=== PATIENT | female | born 1960 | race African-American/Black ===

== ENCOUNTER 2022-01-08 11:36 | Inpatient (IN) | payer BC, OTHER ==
[2022-01-08] MEDS ORDERED: ACETAMINOPHEN 1000 MG/100 ML BAG IVPB ONE (12:59)
[2022-01-08] MEDS ORDERED: ACETAMINOPHEN INJECTION 100 ML IVPB ONE (13:00)
[2022-01-08 13:21] LABS: BASO % 0.2 % (0-2.0); EOS % 0.1 % (0-4.5); HEMATOCRIT 43.6 % (32.4-45.2); LYMPH % 26.8 % (8-40); MCH 31.1 pg (25.7-33.7); MCHC 32.1 g/dl (32.0-36.0); MEAN CELL VOLUME 96.8 fl (80-96); NEUT % 63.9 % (42.8-82.8); PLATELET COUNT 177 10^3/uL (134-434); RBC 4.51 M/mm3 (3.60-5.2); WHITE BLOOD COUNT 4.2 K/mm3 (4.0-10.0)
[2022-01-08 13:41] LABS: CHLORIDE 110 mmol/L (98-107); SODIUM 143 mmol/L (136-145)
[2022-01-08 13:44] LABS: CALCIUM 9.8 mg/dL (8.5-10.1)
[2022-01-08 13:45] LABS: ALBUMIN 3.7 g/dl (3.4-5.0); ANION GAP 9 MMOL/L (8-16); CO2 24 mmol/L (21-32); GLUCOSE,RANDOM 119 mg/dL (74-106)
[2022-01-08 13:48] LABS: CREATININE 1.4 mg/dL (0.55-1.3); SGOT/AST 98 U/L (15-37); SGPT/ALT 115 U/L (13-61)
[2022-01-08 13:49] LABS: ALK PHOS 56 U/L (45-117); BILIRUBIN,TOTAL 0.9 mg/dL (0.2-1)
[2022-01-08 14:06] LABS: N-TERMINAL BNP 40397.8 pg/ml (5-125)
[2022-01-08] MEDS ORDERED: FUROSEMIDE 40 MG/4 ML INJECTABLE VIAL IVPUSH ONE ×2 (14:22→17:15)
[2022-01-08] MEDS ORDERED: ASPIRIN 81 MG CHEWABLE TABLETS PO ONE (14:22)
[2022-01-08] MEDS ORDERED: FUROSEMIDE 40 MG/4 ML INJECTABLE VIAL ONE ×2 (14:25→17:41)
[2022-01-08] MEDS ORDERED: ASPIRIN 81 MG CHEWABLE TABLETS ONE (14:25)
[2022-01-08] MEDS ORDERED: HEPARIN NA (PORCINE) 5,000 UNITS/ML 1ML VIAL IVPUSH ONE (17:19)
[2022-01-08] MEDS ORDERED: HEPARIN NA (PORCINE) 5,000 UNITS/ML 1ML VIAL IVPUSH PRN (18:49)
[2022-01-08 19:59] LABS: INR 1.22 (0.83-1.09); PROTHROMBIN TIME (PATIENT) 14.1 SEC (9.7-13.0)
[2022-01-08 20:02] LABS: ACTIVATED PTT 23.9 SECONDS (25.2-36.5)
[2022-01-08] MEDS ORDERED: HEPARIN NA (PORCINE) 5,000 UNITS/ML 1ML VIAL ONE (20:19)
[2022-01-08] MEDS ORDERED: HEPARIN INFUSION - 25,000 UNITS/500 ML INFUS.BAG IVPB ONE (20:20)
[2022-01-08] MEDS: HEPARIN INFUSION - 25,000 UNITS/500 ML INFUS.BAG IVPB SCH (20:34)
[2022-01-08] MEDS ORDERED: POLYETHYLENE GLYCOL (HEALTHYLAX) 3350 17 GM PACKET PO PRN (23:31)
[2022-01-08] MEDS ORDERED: ACETAMINOPHEN 1000 MG/100 ML BAG IVPB PRN (23:37)
[2022-01-09 06:25] LABS: BASO % 0.2 % (0-2.0); EOS % 0.1 % (0-4.5); HEMATOCRIT 45.1 % (32.4-45.2); HEMOGLOBIN 14.4 GM/dL (10.7-15.3); LYMPH % 28.6 % (8-40); MCH 31.3 pg (25.7-33.7); MEAN PLT VOLUME 11.7 fl (7.5-11.1); MONO % 10.9 % (3.8-10.2); NEUT % 60.2 % (42.8-82.8); PLATELET COUNT 179 10^3/uL (134-434); RDW 15.6 % (11.6-15.6); WHITE BLOOD COUNT 7.2 K/mm3 (4.0-10.0)
[2022-01-09 06:58] LABS: CHLORIDE 108 mmol/L (98-107); SODIUM 145 mmol/L (136-145)
[2022-01-09 06:59] LABS: CALCIUM 8.8 mg/dL (8.5-10.1)
[2022-01-09 07:00] LABS: ANION GAP 15 MMOL/L (8-16); BLOOD UREA NITROGEN 27.2 mg/dL (7-18); CO2 22 mmol/L (21-32); GLUCOSE,RANDOM 149 mg/dL (74-106); MAGNESIUM 2.4 mg/dL (1.8-2.4)
[2022-01-09 07:03] LABS: CREATININE 1.6 mg/dL (0.55-1.3); PHOSPHOROUS 4.7 mg/dL (2.5-4.9)
[2022-01-09] MEDS: PANTOPRAZOLE 40 MG TABLET PO SCH (10:00)
[2022-01-09] MEDS ORDERED: FUROSEMIDE 100 MG/10 ML INJECTABLE VIAL IVPB SCH (11:42)
[2022-01-09] MEDS ORDERED: CLOPIDOGREL BISULFATE 300 MG TABLET PO ONE (13:23)
[2022-01-09] MEDS: FUROSEMIDE 40 MG/4 ML INJECTABLE VIAL IVPB SCH (13:49)
[2022-01-09] MEDS: ASPIRIN 81 MG CHEWABLE TABLETS PO SCH (13:50)
[2022-01-09] MEDS: HEPARIN NA (PORCINE) 5,000 UNITS/ML 1ML VIAL IVPUSH PRN (21:13)
[2022-01-09] MEDS ORDERED: ACETAMINOPHEN 325 MG TABLET (FP) PO PRN (23:31)
[2022-01-10 06:03] LABS: BASO % 0.4 % (0-2.0); EOS % 0.5 % (0-4.5); HEMATOCRIT 42.2 % (32.4-45.2); HEMOGLOBIN 13.8 GM/dL (10.7-15.3); LYMPH % 31.1 % (8-40); MCH 31.1 pg (25.7-33.7); MCHC 32.8 g/dl (32.0-36.0); MEAN CELL VOLUME 94.8 fl (80-96); MEAN PLT VOLUME 10.4 fl (7.5-11.1); MONO % 8.7 % (3.8-10.2); NEUT % 59.3 % (42.8-82.8); PLATELET COUNT 151 10^3/uL (134-434); RBC 4.45 M/mm3 (3.60-5.2); RDW 15.2 % (11.6-15.6); WHITE BLOOD COUNT 4.7 K/mm3 (4.0-10.0)
[2022-01-10] MEDS: FUROSEMIDE 40 MG/4 ML INJECTABLE VIAL IVPB SCH ×2 (06:14→13:34)
[2022-01-10 06:22] LABS: CALCIUM 8.9 mg/dL (8.5-10.1)
[2022-01-10 06:23] LABS: BLOOD UREA NITROGEN 30.4 mg/dL (7-18)
[2022-01-10 06:26] LABS: CREATININE 1.2 mg/dL (0.55-1.3)
[2022-01-10 06:27] LABS: BILIRUBIN,TOTAL 0.8 mg/dL (0.2-1); TOT PROT 5.8 g/dl (6.4-8.2)
[2022-01-10] MEDS: HEPARIN NA (PORCINE) 5,000 UNITS/ML 1ML VIAL IVPUSH PRN (06:49)
[2022-01-10] MEDS: HEPARIN INFUSION - 25,000 UNITS/500 ML INFUS.BAG IVPB SCH (07:48)
[2022-01-10] MEDS: ASPIRIN 81 MG CHEWABLE TABLETS PO SCH (09:49)
[2022-01-10] MEDS: PANTOPRAZOLE 40 MG TABLET PO SCH (09:49)
[2022-01-10] MEDS: CLOPIDOGREL BISULFATE 75 MG TABLET (FP) PO SCH (09:49)
[2022-01-10 10:58] LABS: EPI CELLS 0 /uL (0-25.1); HYALINE CASTS 0 /uL (0-3.1); URINE APPEARANCE CLEAR; URINE BILIRUBIN NEGATIVE (NEGATIVE); URINE COLOR YELLOW; URINE GLUCOSE (UA) TRACE (NEGATIVE); URINE KETONE NEGATIVE (NEGATIVE); URINE LEUK ESTERASE NEGATIVE (NEGATIVE); URINE NITRITE POSITIVE (NEGATIVE); URINE PROTEIN NEGATIVE (NEGATIVE); URINE RBC 5 /uL (0-23.9); URINE UROBILINOGEN 0.2 mg/dL (0.2-1.0); URINE WBC 0 /uL (0-25.8)
[2022-01-10 12:08] LABS: URINE BACTERIA 0.9 /uL (0-1359)
[2022-01-10] MEDS: ATORVASTATIN CA 80 MG TABLET (FP) PO SCH (21:25)
[2022-01-11] MEDS: FUROSEMIDE 40 MG/4 ML INJECTABLE VIAL IVPB SCH ×2 (06:19→14:15)
[2022-01-11 08:22] LABS: MCH 31.2 pg (25.7-33.7); MCHC 32.5 g/dl (32.0-36.0); MEAN PLT VOLUME 11.3 fl (7.5-11.1); PLATELET COUNT 170 10^3/uL (134-434); RBC 4.48 M/mm3 (3.60-5.2); RDW 14.9 % (11.6-15.6); WHITE BLOOD COUNT 4.5 K/mm3 (4.0-10.0)
[2022-01-11 08:36] LABS: ALBUMIN 3.1 g/dl (3.4-5.0); CALCIUM 8.9 mg/dL (8.5-10.1)
[2022-01-11 08:37] LABS: BLOOD UREA NITROGEN 30.7 mg/dL (7-18)
[2022-01-11 08:40] LABS: CREATININE 1.1 mg/dL (0.55-1.3)
[2022-01-11 08:41] LABS: BILIRUBIN,TOTAL 0.8 mg/dL (0.2-1); TOT PROT 6.2 g/dl (6.4-8.2)
[2022-01-11] MEDS: PANTOPRAZOLE 40 MG TABLET PO SCH (09:22)
[2022-01-11] MEDS: CLOPIDOGREL BISULFATE 75 MG TABLET (FP) PO SCH (09:22)
[2022-01-11] MEDS: ASPIRIN 81 MG CHEWABLE TABLETS PO SCH (09:22)
[2022-01-11] MEDS: ATORVASTATIN CA 80 MG TABLET (FP) PO SCH (21:58)
[2022-01-12] MEDS: FUROSEMIDE 40 MG/4 ML INJECTABLE VIAL IVPB SCH ×2 (06:13→13:28)
[2022-01-12 07:20] LABS: HEMATOCRIT 39.7 % (32.4-45.2); HEMOGLOBIN 13.3 GM/dL (10.7-15.3); MCHC 33.6 g/dl (32.0-36.0); MEAN CELL VOLUME 95.2 fl (80-96); MEAN PLT VOLUME 10.8 fl (7.5-11.1); PLATELET COUNT 176 10^3/uL (134-434); RBC 4.17 M/mm3 (3.60-5.2); RDW 14.6 % (11.6-15.6); WHITE BLOOD COUNT 3.4 K/mm3 (4.0-10.0)
[2022-01-12 07:42] LABS: ALBUMIN 2.8 g/dl (3.4-5.0); CALCIUM 8.7 mg/dL (8.5-10.1)
[2022-01-12 07:43] LABS: BLOOD UREA NITROGEN 29.1 mg/dL (7-18)
[2022-01-12 07:47] LABS: BILIRUBIN,TOTAL 0.6 mg/dL (0.2-1); TOT PROT 5.6 g/dl (6.4-8.2)
[2022-01-12] MEDS: ASPIRIN 81 MG CHEWABLE TABLETS PO SCH (09:10)
[2022-01-12] MEDS: CLOPIDOGREL BISULFATE 75 MG TABLET (FP) PO SCH (09:10)
[2022-01-12] MEDS: PANTOPRAZOLE 40 MG TABLET PO SCH (09:10)
[2022-01-12] MEDS: ATORVASTATIN CA 80 MG TABLET (FP) PO SCH (21:47)
[2022-01-13] MEDS: FUROSEMIDE 40 MG/4 ML INJECTABLE VIAL IVPB SCH ×2 (06:16→13:46)
[2022-01-13 07:30] LABS: HEMATOCRIT 40.4 % (32.4-45.2); HEMOGLOBIN 13.1 GM/dL (10.7-15.3); MCH 31.3 pg (25.7-33.7); MCHC 32.4 g/dl (32.0-36.0); MEAN CELL VOLUME 96.7 fl (80-96); MEAN PLT VOLUME 10.8 fl (7.5-11.1); PLATELET COUNT 173 10^3/uL (134-434); RBC 4.18 M/mm3 (3.60-5.2); WHITE BLOOD COUNT 3.7 K/mm3 (4.0-10.0)
[2022-01-13 08:07] LABS: CALCIUM 8.9 mg/dL (8.5-10.1)
[2022-01-13 08:08] LABS: ALBUMIN 2.7 g/dl (3.4-5.0); BLOOD UREA NITROGEN 29.8 mg/dL (7-18)
[2022-01-13 08:11] LABS: CREATININE 1.1 mg/dL (0.55-1.3)
[2022-01-13 08:12] LABS: BILIRUBIN,TOTAL 0.5 mg/dL (0.2-1); TOT PROT 5.6 g/dl (6.4-8.2)
[2022-01-13] MEDS: PANTOPRAZOLE 40 MG TABLET PO SCH (09:33)
[2022-01-13] MEDS: ENALAPRIL MALEATE 2.5 MG TABLET PO SCH (09:33)
[2022-01-13] MEDS: CLOPIDOGREL BISULFATE 75 MG TABLET (FP) PO SCH (09:33)
[2022-01-13] MEDS: ASPIRIN 81 MG CHEWABLE TABLETS PO SCH (09:33)
[2022-01-13] MEDS: ATORVASTATIN CA 80 MG TABLET (FP) PO SCH (21:33)
[2022-01-14] MEDS: FUROSEMIDE 40 MG/4 ML INJECTABLE VIAL IVPB SCH ×3 (06:36→13:53)
[2022-01-14] MEDS: CLOPIDOGREL BISULFATE 75 MG TABLET (FP) PO SCH (09:29)
[2022-01-14] MEDS: PANTOPRAZOLE 40 MG TABLET PO SCH (09:29)
[2022-01-14] MEDS: ENALAPRIL MALEATE 2.5 MG TABLET PO SCH ×2 (09:30→09:33)
[2022-01-14] MEDS: ASPIRIN 81 MG CHEWABLE TABLETS PO SCH (09:30)
[2022-01-14 13:13] VITALS: BMI 18.3
[2022-01-14] MEDS: ATORVASTATIN CA 80 MG TABLET (FP) PO SCH (21:41)
[2022-01-15] MEDS: FUROSEMIDE 40 MG/4 ML INJECTABLE VIAL IVPB SCH ×3 (06:10→13:42)
[2022-01-15] MEDS: ASPIRIN 81 MG CHEWABLE TABLETS PO SCH (09:56)
[2022-01-15] MEDS: PANTOPRAZOLE 40 MG TABLET PO SCH (09:56)
[2022-01-15] MEDS: CLOPIDOGREL BISULFATE 75 MG TABLET (FP) PO SCH (09:56)
[2022-01-15] MEDS: ENALAPRIL MALEATE 2.5 MG TABLET PO SCH (09:57)
[2022-01-15] MEDS: ATORVASTATIN CA 80 MG TABLET (FP) PO SCH (22:01)
[2022-01-16] MEDS: FUROSEMIDE 40 MG/4 ML INJECTABLE VIAL IVPB SCH ×2 (05:56→13:45)
[2022-01-16] MEDS: CLOPIDOGREL BISULFATE 75 MG TABLET (FP) PO SCH (09:09)
[2022-01-16] MEDS: ASPIRIN 81 MG CHEWABLE TABLETS PO SCH (09:09)
[2022-01-16] MEDS: PANTOPRAZOLE 40 MG TABLET PO SCH (09:09)
[2022-01-16 09:18] LABS: BASO % 0.8 % (0-2.0); EOS % 0.8 % (0-4.5); HEMATOCRIT 39.2 % (32.4-45.2); LYMPH % 26.8 % (8-40); MCH 31.7 pg (25.7-33.7); MCHC 33.2 g/dl (32.0-36.0); MEAN CELL VOLUME 95.3 fl (80-96); MEAN PLT VOLUME 9.8 fl (7.5-11.1); MONO % 11.5 % (3.8-10.2); NEUT % 60.1 % (42.8-82.8); PLATELET COUNT 208 10^3/uL (134-434); RBC 4.11 M/mm3 (3.60-5.2); RDW 15.1 % (11.6-15.6); WHITE BLOOD COUNT 3.8 K/mm3 (4.0-10.0)
[2022-01-16 10:38] LABS: CALCIUM 9.1 mg/dL (8.5-10.1)
[2022-01-16 10:39] LABS: ALBUMIN 3.1 g/dl (3.4-5.0); BLOOD UREA NITROGEN 40.8 mg/dL (7-18)
[2022-01-16 10:42] LABS: CREATININE 1.2 mg/dL (0.55-1.3)
[2022-01-16 10:43] LABS: BILIRUBIN,TOTAL 0.5 mg/dL (0.2-1)
[2022-01-16] MEDS: ATORVASTATIN CA 80 MG TABLET (FP) PO SCH (21:35)
[2022-01-17] MEDS: FUROSEMIDE 40 MG/4 ML INJECTABLE VIAL IVPB SCH ×2 (06:13→13:07)
[2022-01-17] MEDS: CLOPIDOGREL BISULFATE 75 MG TABLET (FP) PO SCH (09:49)
[2022-01-17] MEDS: ASPIRIN 81 MG CHEWABLE TABLETS PO SCH (09:49)
[2022-01-17] MEDS: PANTOPRAZOLE 40 MG TABLET PO SCH (09:49)
[2022-01-17] MEDS: ATORVASTATIN CA 80 MG TABLET (FP) PO SCH (21:19)
[2022-01-18] MEDS: FUROSEMIDE 40 MG/4 ML INJECTABLE VIAL IVPB SCH ×3 (06:29→14:36)
[2022-01-18] MEDS: ASPIRIN 81 MG CHEWABLE TABLETS PO SCH (09:53)
[2022-01-18] MEDS: PANTOPRAZOLE 40 MG TABLET PO SCH (09:53)
[2022-01-18] MEDS: CLOPIDOGREL BISULFATE 75 MG TABLET (FP) PO SCH (09:53)
[2022-01-18] MEDS: ATORVASTATIN CA 80 MG TABLET (FP) PO SCH (21:07)
[2022-01-19] MEDS: FUROSEMIDE 40 MG/4 ML INJECTABLE VIAL IVPB SCH (06:09)
[2022-01-19] MEDS: ASPIRIN 81 MG CHEWABLE TABLETS PO SCH (09:28)
[2022-01-19] MEDS: CLOPIDOGREL BISULFATE 75 MG TABLET (FP) PO SCH (09:28)
[2022-01-19] MEDS: PANTOPRAZOLE 40 MG TABLET PO SCH (09:28)
[2022-01-19] MEDS: ATORVASTATIN CA 80 MG TABLET (FP) PO SCH (22:20)
[2022-01-20] MEDS: PANTOPRAZOLE 40 MG TABLET PO SCH ×2 (09:38→09:57)
[2022-01-20] MEDS: CLOPIDOGREL BISULFATE 75 MG TABLET (FP) PO SCH ×2 (09:38→09:56)
[2022-01-20] MEDS: ASPIRIN 81 MG CHEWABLE TABLETS PO SCH ×2 (09:38→09:56)
[2022-01-20] MEDS: FUROSEMIDE 40 MG TABLET (FP) PO SCH ×2 (09:52→09:56)
[2022-01-20] MEDS ORDERED: ACETAMINOPHEN 325 MG TABLET (FP) PO PRN (19:41)
[2022-01-20] MEDS ORDERED: POLYETHYLENE GLYCOL (HEALTHYLAX) 3350 17 GM PACKET PO PRN (19:41)
[2022-01-20] MEDS: ATORVASTATIN CA 80 MG TABLET (FP) PO SCH (21:55)
[2022-01-21] MEDS: ASPIRIN 81 MG CHEWABLE TABLETS PO SCH (16:31)
[2022-01-21] MEDS: PANTOPRAZOLE 40 MG TABLET PO SCH (16:32)
[2022-01-21] MEDS: CLOPIDOGREL BISULFATE 75 MG TABLET (FP) PO SCH (16:32)
[2022-01-21] MEDS: FUROSEMIDE 40 MG TABLET (FP) PO SCH (16:32)
[2022-01-21] MEDS: ATORVASTATIN CA 80 MG TABLET (FP) PO SCH (21:17)
[2022-01-22] MEDS: ASPIRIN 81 MG CHEWABLE TABLETS PO SCH (10:16)
[2022-01-22] MEDS: FUROSEMIDE 40 MG TABLET (FP) PO SCH (10:17)
[2022-01-22] MEDS: PANTOPRAZOLE 40 MG TABLET PO SCH (10:17)
[2022-01-22] MEDS: CLOPIDOGREL BISULFATE 75 MG TABLET (FP) PO SCH (10:17)
[2022-01-22] MEDS: ATORVASTATIN CA 80 MG TABLET (FP) PO SCH (21:41)
[2022-01-23] MEDS: PANTOPRAZOLE 40 MG TABLET PO SCH (10:16)
[2022-01-23] MEDS: FUROSEMIDE 40 MG TABLET (FP) PO SCH ×2 (10:16→11:48)
[2022-01-23] MEDS: CLOPIDOGREL BISULFATE 75 MG TABLET (FP) PO SCH (10:16)
[2022-01-23] MEDS: ASPIRIN 81 MG CHEWABLE TABLETS PO SCH (10:16)
[2022-01-23 17:32] LABS: CALCIUM 9.6 mg/dL (8.5-10.1)
[2022-01-23 17:33] LABS: BLOOD UREA NITROGEN 32.7 mg/dL (7-18)
[2022-01-23 17:36] LABS: CREATININE 1.3 mg/dL (0.55-1.3)
[2022-01-23 19:34] VITALS: RESP 18
[2022-01-23] MEDS: ATORVASTATIN CA 80 MG TABLET (FP) PO SCH (21:43)
[2022-01-24] MEDS: CLOPIDOGREL BISULFATE 75 MG TABLET (FP) PO SCH (09:25)
[2022-01-24] MEDS: FUROSEMIDE 40 MG TABLET (FP) PO SCH (09:25)
[2022-01-24] MEDS: ASPIRIN 81 MG CHEWABLE TABLETS PO SCH (09:25)
[2022-01-24] MEDS: PANTOPRAZOLE 40 MG TABLET PO SCH (09:25)
[2022-01-24] MEDS: ATORVASTATIN CA 80 MG TABLET (FP) PO SCH (21:35)
[2022-01-25] MEDS: ASPIRIN 81 MG CHEWABLE TABLETS PO SCH (11:43)
[2022-01-25] MEDS: FUROSEMIDE 40 MG TABLET (FP) PO SCH (11:43)
[2022-01-25] MEDS: CLOPIDOGREL BISULFATE 75 MG TABLET (FP) PO SCH (11:44)
[2022-01-25] MEDS: PANTOPRAZOLE 40 MG TABLET PO SCH (11:44)
[2022-01-25] MEDS: ATORVASTATIN CA 80 MG TABLET (FP) PO SCH (21:31)
[2022-01-26] MEDS: FUROSEMIDE 40 MG TABLET (FP) PO SCH (12:43)
[2022-01-26] MEDS: ASPIRIN 81 MG CHEWABLE TABLETS PO SCH (12:44)
[2022-01-26] MEDS: CLOPIDOGREL BISULFATE 75 MG TABLET (FP) PO SCH (12:44)
[2022-01-26] MEDS: PANTOPRAZOLE 40 MG TABLET PO SCH (12:44)
[2022-01-26] MEDS: ATORVASTATIN CA 80 MG TABLET (FP) PO SCH (21:56)
[2022-01-27] MEDS: ASPIRIN 81 MG CHEWABLE TABLETS PO SCH (18:11)
[2022-01-27] MEDS: FUROSEMIDE 40 MG TABLET (FP) PO SCH (18:12)
[2022-01-27] MEDS: PANTOPRAZOLE 40 MG TABLET PO SCH (18:12)
[2022-01-27] MEDS: CLOPIDOGREL BISULFATE 75 MG TABLET (FP) PO SCH (18:12)
[2022-01-27] MEDS: ATORVASTATIN CA 80 MG TABLET (FP) PO SCH (21:58)
[2022-01-28 09:01] VITALS: BP 98/67; PULSE 95; TEMP 97.8
[2022-01-28] MEDS: FUROSEMIDE 40 MG TABLET (FP) PO SCH (09:30)
[2022-01-28] MEDS: PANTOPRAZOLE 40 MG TABLET PO SCH (09:30)
[2022-01-28] MEDS: CLOPIDOGREL BISULFATE 75 MG TABLET (FP) PO SCH (09:30)
[2022-01-28] MEDS: ASPIRIN 81 MG CHEWABLE TABLETS PO SCH (09:30)
== END 2022-01-28 04:00 | DRG 280 ==
LOC: JER 11:36 → JERBED 15:43 → OBSVTOIN 23:31 → J4W 01-09 05:26 → J5S 01-20 18:26
PROVIDERS: ADMIT Internal Medicine; ATTEND Internal Medicine
DX: I50.23 Acute on chronic systolic (congestive) heart failure (principal); I21.4 Non-ST elevation (NSTEMI) myocardial infarction; E43 Unspecified severe protein-calorie malnutrition; I45.2 Bifascicular block; J98.11 Atelectasis; Z68.1 Body mass index [BMI] 19.9 or less, adult; I31.3 Pericardial effusion (noninflammatory); I11.0 Hypertensive heart disease with heart failure; E78.5 Hyperlipidemia, unspecified; K21.9 Gastro-esophageal reflux disease without esophagitis; R00.0 Tachycardia, unspecified; R60.0 Localized edema; F32.A Depression, unspecified; F39 Unspecified mood [affective] disorder; I25.10 Atherosclerotic heart disease of native coronary artery without angina pectoris; I95.9 Hypotension, unspecified; I45.10 Unspecified right bundle-branch block; Z91.14 Patient's other noncompliance with medication regimen
CPT/HCPCS: 36415; 71045-TC-FY; 80048; 80053; 80061; 81003; 83735; 83880; 84100; 84443; 84484; 85025; 85027; 85610; 85730; 93005; 93010; 93306-TC; 97116-GP; 97161-GP; 99285-25; C9803-CS; G0378; J1644; U0003; U0005